=== PATIENT | female | born 1965 | race Caucasian/White ===

== ENCOUNTER 2018-01-12 07:35 | Day surgery (SDC) | payer OTHER ==
[2018-01-12] MEDS ORDERED: FENTAnyl 50 MCG/ML VIAL ×2 (08:45→10:42)
[2018-01-12] MEDS ORDERED: LIDOCAINE 2% (SDV) 5 ML INJ (08:46)
[2018-01-12] MEDS ORDERED: PROPOFOL 20 ML (08:46)
[2018-01-12] MEDS ORDERED: CEFAZOLIN 1 GM INJ (08:46)
[2018-01-12] MEDS ORDERED: MIDAZOLAM 1 MG/ML 2 ML INJ (08:46)
[2018-01-12] MEDS ORDERED: METOCLOPRAMIDE 10 MG INJ (08:47)
[2018-01-12] MEDS ORDERED: SUCCINYLCHOLINE CHLORIDE 100 MG/5 ML SYG IV (08:47)
[2018-01-12] MEDS ORDERED: SUGAMMADEX SODIUM 200 MG/2 ML VIAL IV (08:51)
[2018-01-12] MEDS ORDERED: ROPIVACAINE 0.5 % 30 ML VIAL (08:54)
[2018-01-12] MEDS ORDERED: DIPHENHYDRAMINE 50 MG INJ IV (09:30)
[2018-01-12] MEDS ORDERED: MEPERIDINE 25 MG INJ IV (09:30)
[2018-01-12] MEDS ORDERED: HYDROmorphONE 1 MG/5 ML IV SYRINGE IV ×3 (09:30)
[2018-01-12] MEDS ORDERED: LEVALBUTEROL (NEB) 1.25 MG/0.5 ML AMP HHN (09:30)
[2018-01-12] MEDS ORDERED: ONDANSETRON 4 MG INJ IV (09:30)
[2018-01-12] MEDS ORDERED: FENTAnyl 50 MCG/ML VIAL IV ×2 (09:30)
[2018-01-12] MEDS ORDERED: NALOXONE (0.4 MG/ML) INJ IV (09:30)
[2018-01-12] MEDS ORDERED: IPRATROPIUM (NEB) 0.5 MG/2.5 ML AMP HHN (09:30)
[2018-01-12] MEDS ORDERED: hydrALAzine 20 MG INJ IV (09:30)
[2018-01-12] MEDS ORDERED: BUPIVACAINE 0.5%/EPI (SDV) 30 ML INJ (09:31)
[2018-01-12] MEDS: LABETALOL HCL 20MG INJ IV (11:50)
== END 2018-01-12 14:15 | disposition home or self-care (01) ==
LOC: SDS 07:35
DX: M75.41 Impingement syndrome of right shoulder (principal); M75.51 Bursitis of right shoulder; M65.811 Other synovitis and tenosynovitis, right shoulder; S43.491A Other sprain of right shoulder joint, initial encounter; X58.XXXA Exposure to other specified factors, initial encounter
CPT/HCPCS: 29823; 84703

== ENCOUNTER 2018-08-19 13:23 | Emergency (ER) | payer OTHER ==
[2018-08-19 15:16] LABS: URINE BLOOD (Dip) POC Trace-lysed (NEGATIVE); URINE GLUCOSE (Dip) POC Negative (NEGATIVE); URINE KETONES (Dip) POC Negative (NEGATIVE); URINE LEUKOCYTE EST (Dip) POC 1+ (NEGATIVE); URINE NITRITE (Dip) POC Negative (NEGATIVE); URINE TOTAL PROTEIN POC Negative (NEGATIVE)
[2018-08-19] MEDS: PHENAZOPYRIDINE 100 MG TAB PO (15:39)
[2018-08-19] MEDS: CEPHALEXIN 500 MG CAP PO (15:39)
== END 2018-08-19 16:08 | disposition home or self-care (01) ==
LOC: FTE 13:23
DX: N30.00 Acute cystitis without hematuria (principal); I10 Essential (primary) hypertension
CPT/HCPCS: 81003; 81025; 99283

== ENCOUNTER 2018-11-01 12:23 | Emergency (ER) | payer OTHER ==
[2018-11-01] MEDS: KETOROLAC 60 MG INJ IM (13:17)
[2018-11-01] MEDS: HYDROCORTISONE 25 MG SUPP PR (13:17)
[2018-11-01] MEDS: HARD FAT/PHENYLEPHRINE SUPP PR (13:21)
== END 2018-11-01 13:44 | disposition home or self-care (01) ==
LOC: FTE 12:23
DX: K64.9 Unspecified hemorrhoids (principal); I10 Essential (primary) hypertension
CPT/HCPCS: 81025; 96372; 99284-25